=== PATIENT | male | born 1995 | race Caucasian/White ===

== ENCOUNTER 2016-06-11 21:22 | Emergency (ER) | payer SELFPAY | END 2016-06-11 22:44 | disposition T | LOC: EDMED 21:22 | DX: K64.5 Perianal venous thrombosis (principal); F17.210 Nicotine dependence, cigarettes, uncomplicated | CPT/HCPCS: J1885 ==

== ENCOUNTER 2016-07-28 15:09 | Emergency (ER) | payer SELFPAY ==
[2016-07-28 17:23] LABS: URINE BILIRUBIN NEGATIVE (NEG); URINE BLOOD NEGATIVE (NEG); URINE GLUCOSE (UA) NEGATIVE (NEG); URINE KETONE NEGATIVE (NEG); URINE LEUKOCYTE ESTERASE NEGATIVE (NEG); URINE NITRITE NEGATIVE (NEG); URINE PROTEIN NEGATIVE (NEG); URINE SPECIFIC GRAVITY 1.005 (1.003-1.030)
[2016-07-28 17:36] LABS: URINE APPEARANCE CLEAR; URINE COLOR YELLOW
[2016-07-28] MEDS ORDERED: IBUPROFEN600 M1 PO (17:46)
[2016-07-28] MEDS ORDERED: CYCLOBENZAPRINE5 M1 PO (17:46)
== END 2016-07-28 17:54 ==
LOC: EDMED 15:09
PROVIDERS: Emergency Medicine
DX: S39.012A Strain of muscle, fascia and tendon of lower back, initial encounter (principal); L05.92 Pilonidal sinus without abscess; F17.200 Nicotine dependence, unspecified, uncomplicated; X50.0XXA Overexertion from strenuous movement or load, initial encounter
CPT/HCPCS: J1885